=== PATIENT | female | born 1985 | race African-American/Black ===

== ENCOUNTER 2023-01-16 08:30 | Emergency (ER) | payer OTHER, SELFPAY ==
[2023-01-16 08:35] VITALS: BP 146/88; PULSE 88; RESP 16; TEMP 36.5; O2SAT 100
[2023-01-16 09:07] LABS: Basophils Percent Auto 0.6 % (0.2-1.2); Eosinophils Absolute Auto 0.3 K/mm3 (0-0.3); Eosinophils Percent Auto 3.5 % (0-4.4); Hematocrit 44.7 % (37.0-47.0); Hemoglobin 14.7 g/dL (12.0-15.0); Immature Granulocyte Absolute 0.02 K/mm3 (0.00-0.031); Immature Granulocyte Percent A 0.3 % (0-0.5); Lymphocytes Absolute Auto 1.83 K/mm3 (0.9-3.2); Lymphocytes Percent Auto 25.4 % (18.3-44.2); Mean Corpuscular HGB Conc 32.9 g/dl (32-36); Mean Corpuscular Hemoglobin 29.2 pg (26-34); Mean Corpuscular Volume 88.7 fl (80-100); Mean Platelet Volume 10.7 fl (7.4-10.4); Monocytes Absolute Auto 0.5 K/mm3 (0.1-0.6); Monocytes Percent Auto 7.2 % (2.6-8.5); Neutrophils Absolute Auto 4.5 K/mm3 (1.3-6.7); Platelet Count Result 393 k/mm3 (150-375); Red Blood Count 5.04 M/mm3 (4.2-5.4); Red Cell Distribution Width 13.2 % (11.5-14.5); White Blood Count 7.2 K/mm3 (4.5-10.0)
[2023-01-16 09:19] LABS: Appearance Urine Cloudy (Clear); Bacteria Urine 2+ /hpf; Bilirubin Urine Negative (Negative); Blood Urine Negative (Negative); Color Urine Yellow (Yellow); Glucose Urine UA Negative (Negative); Ketones Urine 2+ mg/dL (Negative); Leukocyte Esterase Ur Negative LEU/UL (Negative); Nitrate Urine Negative (Negative); Protein Urine Trace mg/dL (Negative); RBC Urine 0-2 /hpf (0-2); Specific Grav Ur 1.025 (1.001-1.035); Squamous Epithelial Cell Urine Moderate /hpf (Few); pH Urine 6.5 (5.0-9.0)
[2023-01-16 09:20] LABS: Alanine Aminotransferase 12 U/L (6-35); Albumin Level 4.5 g/dL (3.5-5.1); Alkaline Phosphatase 79 U/L (38-126); Anion Gap 8 mmol/L (8-16); Aspartate Amino Transferase 17 U/L (14-36); Bilirubin,Total 1.3 mg/dL (0.2-1.3); Blood Urea Nitrogen 8 mg/dL (7-17); Calcium 9.2 mg/dL (8.4-10.2); Carbon Dioxide 25 mmol/L (22-30); Chloride 103 mmol/L (98-107); Estimated CRCL calculation 104 ml/min; Estimated Glomerular Filt Rate > 60; Glucose 95 mg/dL (65-110); Lipase 57 U/L (23-300); Potassium 3.9 mmol/L (3.4-5.0); Sodium 136 mmol/L (137-145)
[2023-01-16 09:25] LABS: Add Urine Microscopic? YES
[2023-01-16] MEDS: SODIUM CHLORIDE 0.9% IV 1,000 ML 999 ML IV CONT (10:10)
--- NOTE | 2023-01-16 10:35 | ED.ABDPAIN ---
HPI - Abdominal Pain General Chief Complaint: Abdominal Pain Stated Complaint: pelvic and back pain x one week Time Seen by Provider: 01/16/23 09:06 Source: patient Mode of arrival: ambulatory Limitations: no limitations History of Present Illness HPI narrative: 37-year-old female presents today with complaints of pelvic pain and back pain x1 week. Patient denies any fevers, body aches, chills. She does endorse some nausea but no vomiting. Patient states that it has improved from when it started but it is still there so she has concerns. Patient does have a history of constipation and this is normal for her she is on Wegovy. She denies any dysuria, hematuria, urinary frequency. She does have a history of bacterial vaginosis. She was started on clindamycin. Denies any vaginal discharge at this time. Related Data Home Medications Medication Instructions Recorded Confirmed cetirizine 10 mg capsule (Zyrtec) 10 mg PO DAILY PRN 04/24/21 fluticasone propionate 50 1 spray intranasal DAILY 04/24/21 mcg/actuation nasal spray,suspension (Flonase Allergy Relief) cetirizine 10 mg tablet mg 01/16/23 01/16/23 clindamycin HCl 300 mg capsule mg 01/16/23 ergocalciferol (vitamin D2) 1,250 01/16/23 mcg (50,000 unit) capsule semaglutide (weight loss) 2.4 mg subcut 01/16/23 mg/0.75 mL subcutaneous pen injector (Wegovy) triamcinolone acetonide 0.1 % topical 01/16/23 topical ointment Allergies Allergy/AdvReac Type Severity Reaction Status Date / Time No Known Allergies Allergy Verified 04/24/21 14:48 Review of Systems Review of Systems: CONSTITUTIONAL: Denies fever, chills, or sweats. EYES: Denies visual changes, redness, or discharge. ENT: Denies rhinorrhea, congestion, sore throat, or otalgia. CARDIOVASCULAR: Denies chest pain, palpitations, or edema. RESPIRATORY: Denies cough or dyspnea. GASTROINTESTINAL: Pelvic discomfort. Denies nausea, vomiting, or diarrhea. GENITOURINARY: Denies dysuria or hematuria. SKIN: Denies rash or itching. MUSCULOSKELETAL: Low back discomfort. Denies joint pain, or myalgia. NEUROLOGIC: Denies headache, numbness, dizziness, or weakness. PSYCHIATRIC: Denies anxiety or depression. [facility] Past Medical History Medical History (Updated 01/16/23 @ 10:59 by Jacquelyn Wells APRN) History of x 2 History of vaginal delivery x 2 both pre term Surgical History Surgical History (Updated 04/24/21 @ 14:51 by Marcela Paul MA) History of ankle surgery 12/11/20 History of cervical cerclage 2002 Family History Family History (Updated 04/24/21 @ 14:52 by Marcela Paul MA) Sibling Family history of gout Father Cerebrovascular accident Hypertension Anxiety Mother Family history of eczema Grandparent Diabetes mellitus Social History Social History (Updated 04/24/21 @ 14:53 by Marcela Paul MA) Smoking status: Never smoker Second hand tobacco smoke exposure: Yes Alcohol intake: current Alcohol use details: Rarely Substance use: never Exam Narrative: GENERAL: Well-appearing, well-nourished, and in no acute distress. HEAD: Normocephalic, atraumatic. EYES: PERRLA and EOMI. CHEST: Clear to auscultation. No respiratory distress. No wheezes rales or rhonchi HEART: Regular rate and rhythm. No murmur heard. Normal peripheral pulses. ABDOMEN: Soft, nontender, nondistended, normal active bowel sounds. No CVA tenderness bilaterally. EXTREMITIES: Normal range of motion. No edema. SKIN: Warm, dry, no rash. NEURO: No focal deficits. Alert and oriented x3. PSYCH: Normal mood and affect. Course Course Emergency Course: Discussed findings with patient. Her pain is tolerable. She is currently on clindamycin for possible bacterial vaginosis infection. Patient is aware that her labs are within normal limits. That her urine there is a possibility of there being a urinary tract infection. Due to her symptoms will treat with
[2023-01-16 11:08] VITALS: BP 132/86; PULSE 86; RESP 14; O2SAT 99
== END 2023-01-16 11:09 | disposition home or self-care (01) ==
PROVIDERS: Emergency Medicine; Emergency Provider Nurse Practitioner Family; PCP Internal Medicine
DX: N39.0 Urinary tract infection, site not specified (principal)
CPT/HCPCS: 36415; 80053; 81001; 81025; 83690; 85025; 87086; 87088; 96360; 99284; J7030